=== PATIENT | female | born 1980 ===

== ENCOUNTER 2020-11-29 14:01 | Emergency (ER) | payer OTHER ==
[~2020-11-29] VITALS: Ht 154.9 cm; Wt 49.9 kg
[2020-11-29] MEDS ORDERED: AZO CRANBERRY1 EACH PO (14:28)
[2020-11-29] MEDS ORDERED: PYRIDIUM200 MG PO (18:03)
[2020-11-29] MEDS ORDERED: CIPRO500 MG PO (18:03)
== END 2020-11-29 18:16 | disposition home or self-care (01) ==
LOC: ER 14:01
DX: R30.0 Dysuria (principal)